=== PATIENT | female | born 1950 | race Hispanic/Latino ===

== ENCOUNTER → 2017-06-12 | Outpatient (CLI) | payer MEDICARE ==
--- NOTE | 2017-06-12 09:15 | Diagnostic Imaging Report ---
PROCEDURE:ABDOMINAL ULTRASOUND COMPARISON:None. INDICATIONS:Anemia FINDINGS: Liver: Measures 16.8 cm in the midclavicular line. Normal hepatic parenchymal echogenicity. No focal mass. Main portal vein: Measures 1.2 cm with normal hepatopedal flow. Gallbladder: No stones or wall thickening. Common Bile Duct: Measures 0.3 cm with no echogenic filling defect. Sonographic Morton's sign: Negative Right kidney: Measures 8.8 x 3.5 x 4.5 cm. No solid or cystic mass, echogenic calculi, or hydronephrosis. Increased echogenicity. Left kidney: Measures 8.4 x 4.1 x 4.1 cm. No solid or cystic mass, echogenic calculi, or hydronephrosis. Increased echogenicity. Spleen: Measures 9.6 x 2.5 x 3.6 cm. No mass. Pancreas: Limited evaluation. Inferior vena cava: Normal. Aorta: Limited visualization. Ascites: None. CONCLUSION: Small echogenic kidneys compatible with medical renal disease (patient is on dialysis). Jimmie Kelley D.O. Dictated by: Jimmie Kelley D.O. on 06/12/2017 at 9:14 Electronically approved by: Jimmie Kelley D.O. on 06/12/2017 at 9:14
== END ==
LOC: US 07:49
PROVIDERS: ATTEND Family Medicine
DX: D64.9 Anemia, unspecified (principal); N18.9 Chronic kidney disease, unspecified; Z99.2 Dependence on renal dialysis
CPT/HCPCS: 76700